=== PATIENT | female | born 1985 | race Caucasian/White ===

== ENCOUNTER 2016-06-23 17:30 | Emergency (ER) | payer OTHER ==
[2016-06-23] MEDS ORDERED: ONDANSETRON HCL/PF 2 MG/ML VIAL IV ONE (17:56)
[2016-06-23] MEDS ORDERED: NORMAL SALINE 1,000 ML IV ONE (17:56)
[2016-06-23] MEDS ORDERED: KETOROLAC TROMETHAMINE 60 MG/2 ML VIAL IM ONE (17:58)
--- NOTE | 2016-06-23 18:03 | ERNOTE ---
Medical Problem HPI - Narrative Date of Service: 06/23/16 - General Chief Complaint: Nausea/Vomiting Time Seen by Provider: 06/23/16 17:53 Source: patient Exam Limitations: no limitations - Immun/Allergies/Home Medications Immunizations: IMMUNIZATION HX Immunizations Up to Date Yes History of Influenza Vaccine Yes Hx Pneumococcal Vaccination No Allergies/Adverse Reactions: Allergies latex Adverse Reaction (Verified 06/23/16 17:43) Home Medications: HOME MEDICATIONS LORazepam [Ativan] 0.5 mg PO Q8H #30 tablet 06/04/15 [Last Taken Unknown] Pnv95/Ferrous Fumarate/FA [ Caplet] 1 each PO DAILY 05/21/16 [Last Taken Unknown] - History of Present History Narrative: Pt. comes in with c/o nausea, vomiting, diarrhea since 0100 this morning. Pt. states that she has been unable to tolerate and foods or fluid since. Pt. denies any SOB, CP, cough, fever, or alleviating factors. Pt. states taht she has taken tums and it made the symptoms worse. Review of Systems - Review of Systems Constitutional: Present: malaise. Absent: recent illness, fever, chills, weakness, fatigue EYE: Present: no symptoms reported ENT: Present: no symptoms reported. Absent: ear pain, ear discharge, nose congestion, nasal drainage, sore throat Respiratory: Present: no symptoms reported. Absent: shortness of breath, cough , wheezing Cardiology: Present: no symptoms reported. Absent: chest pain, palpitations, edema Gastrointestinal/Abdominal: Present: nausea, vomiting, diarrhea. Absent: abdominal pain Genitourinary: Present: no symptoms reported. Absent: frequency, pain, dysuria , hematuria, decreased urinary output, discharge Musculoskeletal: Present: back pain - mild generalized. Absent: joint pain Skin: Present: no symptoms reported. Absent: rash, change in color Neurological: Present: no symptoms reported. Absent: headache, dizziness/light- headedness, numbness, tingling All Other Systems: All systems neg except as marked - Patient's Past Medical History Patient History - Medical: ADHD, Anxiety, Other - ectopic Patient History - Cardiac/Respiratory: No pertinent hx Patient History - Cancer: No Hx of Cancer, Other Patient History - Surgical Procedures: Appendectomy, Other Patient History - Other: None LMP (Calendar): 03/24/15 - Family History Mother Family History - Medical: No pertinent hx Family History - Cardiac/Respiratory: No pertinent hx - Social History Living Situations: home Abuse History: No History of abuse Psych History: Hx of Anxiety Alcohol Use: occasionally Drug Use: none - Immunizations Immunizations Up to Date: Yes Hx Pneumococcal Vaccination: No History of Influenza Vaccine: Yes Physical Exam - Physical Exam General Appearance: Present: wd/wn, alert, no apparent distress Eye Exam: Normal inspection: bilateral, PERRL: bilateral, EOMI: bilateral Ears, Nose, Throat: Present: normal ENT inspection, hearing grossly normal, normal pharynx Neck: Present: normal inspection, nontender. Absent: lymphadenopathy (R), lymphadenopathy (L) Respiratory: Present: no respiratory distress, normal breath sounds, no accessory muscle use, chest nontender, lungs clear Cardiovascular/Chest: Present: regular rate, rhythm, no murmur, normal peripheral pulses Gastrointestinal/Abdominal: Present: normal bowel sounds, nontender, soft, no organomegaly, distended - gravid. Absent: McBurney sign, Obturator sign, Edwards sign Back Exam: Present: normal inspection, normal range of motion, no CVA tenderness , no vertebral tenderness. 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 Absent: pallor, skin rash ED Progress - Date and Time Seen: Date and Time: 06/23/16 19:[address] Hopkins and as pt. has been confirmed IUP in office and is not having abd pain she does not feel taht she needs a NST but we will dopple heart tones for reassurance and administer D5 1/2 for fluid bolus to help with ketonuria. - Results and Orders Patient's Lab Results:: I have reviewed the patient's lab results. - Vital Signs Patient's Vital Signs:: I have reviewed the patient's vital signs. Vital Signs: Vital Signs 06/23/16 17:35 Temperature 35.4 C L Pulse Rate 113 H Respiratory 12 Rate Blood Pressure 119/79 O2 Sat by Pulse 98 Oximetry - Progress/Reassessment Chief Complaint: Nausea/Vomiting Departure - Departure Clinical Impression: Acute gastroenteritis Disposition: Home self-care Condition: Good Instructions: Viral Gastroenteritis, Adult, [id number] Additional Instructions: Please follow up with OBGYN or Primary provider as needed for further treatment. May take Vitamin B6, [place] root, or unisom 12.5 mg for nausea. Referrals: Dago Hatch DO [Primary Care Provider] -
[2016-06-23 18:27] LABS: Hematocrit 40.2 % (37.0-47.0); Mean Cell Volume 94.6 fl (78-100); Mean Corpuscular Hemoglobin 32.9 pg (27-31); Mean Corpuscular Hgb Conc 34.8 g/dl (32-36); Neutrophil # 8.7 K/mm3 (1.3-6.0); Neutrophil % 93.2 % (42-75.0); Platelet Count 188 K/mm3 (150-450); Red Blood Count 4.25 M/mm3 (4.2-5.4); Red Cell Distribution Width 12.3 % (11.5-14.0); White Blood Count 9.3 K/mm3 (4.0-10.5)
[2016-06-23 18:34] LABS: Urine Bilirubin Negative (NEGATIVE); Urine Blood Negative /ul (NEGATIVE); Urine Ketone Large mg/dL (NEGATIVE); Urine Nitrite Negative (NEGATIVE); Urine Protein Negative (NEGATIVE); Urine Specific Gravity >=1.030 SP.GR. (1.005-1.010); Urine Urobilinogen Normal (NORMAL)
[2016-06-23] MEDS ORDERED: ONDANSETRON HCL/PF 2 MG/ML VIAL ONE (18:35)
[2016-06-23 18:44] LABS: Albumin * 3.2 gm/dl (3.4-5.0); Anion Gap 13.8 mmol/L (6.8-13.8); BUN/Creatinine Ratio 23.8 (9.0-21.6); Bilirubin, Total 0.5 mg/dL (0.0-1.1); Ca. Corrected For Albumin 8.8 mg/dL (8.4-10.2); Calcium * 8.5 mg/dL (7.9-10.9); Carbon Dioxide 21.7 mmol/L (24-32.6); Potassium 3.5 mmol/L (3.4-4.6); Total Protein 7.9 gm/dL (6.2-8.2)
[2016-06-23] MEDS ORDERED: ACETAMINOPHEN 500 MG TABLET PO ONE (18:51)
[2016-06-23 19:01] LABS: Urine Appearance Clear; Urine Bacteria 1+; Urine Color Yellow; Urine RBC None Seen /hpf (0-5); Urine WBC None Seen /hpf (0-5)
[2016-06-23 19:11] LABS: Cocaine Ur Negative (NEGATIVE); Urine Barbiturate Negative (NEGATIVE); Urine Benzodiazepines Negative (NEGATIVE); Urine Opiates Negative (NEGATIVE); Urine PCP Negative (NEGATIVE); Urine THC Negative (NEGATIVE)
[2016-06-23] MEDS ORDERED: DEXTROSE 5%-0.5 NORMAL SALINE 1,000 ML IV PRN (19:12)
[2016-06-23 20:10] VITALS: BP 121/80
== END 2016-06-23 23:50 | disposition home or self-care (01) ==
LOC: ER 17:30
DX: K52.9 Noninfective gastroenteritis and colitis, unspecified (principal)
CPT/HCPCS: 36415; 80053; 81001; 85025; 96374; 99283; G0479

== ENCOUNTER 2016-10-22 03:47 | Inpatient (IN) | payer OTHER ==
--- OUTSIDE RECORDS SUMMARY | 2016-10-22 03:51 | XMS REPORT | Continuity of Care Document ---
:1985 Author Organization [facility] ([facility]) Address [address] [place] [address] Phone [phone] Care Team Providers Name Role Phone Mauro Hillman Primary Care Provider [phone] Source Comments This disclosure is being made pursuant to the Care Everywhere program, applicable federal and state laws, and may not contain all informaitonavailable regarding this patient.[facility] ([facility]) Active Allergies and Adverse Reactions No Active Allergies Current Medications Not on file Active Problems Not on file Social History Tobacco Use Types Packs/Day Years Used Date Never Assessed Last Filed Vital Signs Vital Sign Reading Time Taken Blood Pressure - - Pulse - - Temperature - - Respiratory Rate - - Height 1.43 m (4' 8.29") 05/27/1999 9:59 AM 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
[2016-10-22] MEDS ORDERED: RINGERS SOLUTION,LACTATED 1,000 ML IV PRN (04:16)
[2016-10-22] MEDS ORDERED: PENICILLIN G POTASSIUM 5 MILLIONUNT in DEXTROSE 5 % IN WATER 100 ML IV ONE ×2 (04:16)
[2016-10-22] MEDS ORDERED: BETAMETH ACET/BETAMET SOD PHOS 6 MG/ML VIAL IM SCH (04:30)
[2016-10-22 04:40] LABS: Hemoglobin 11.5 gm/dL (12.5-16.0); Mean Cell Volume 93.9 fl (78-100); Mean Corpuscular Hemoglobin 31.8 pg (27-31); Mean Corpuscular Hgb Conc 33.8 g/dl (32-36); Mean Platelet Volume 10.8 fl (6.0-9.5); Neutrophil % 68.5 % (42-75.0); Platelet Count 152 K/mm3 (150-450); Red Blood Count 3.62 M/mm3 (4.2-5.4); Red Cell Distribution Width 13.2 % (11.5-14.0); White Blood Count 7.3 K/mm3 (4.0-10.5)
[2016-10-22] MEDS: DEXTROSE 5%-LACTATED RINGERS 1,000 ML IV PRN ×2 (05:08→10:29)
--- OUTSIDE RECORDS SUMMARY | 2016-10-22 08:07 | XMS REPORT | Continuity of Care Document ---
:1985 Author Organization [facility] ([facility]) Address [place] [address] Phone [phone] Care Team Providers Name Role Phone Mauro Hillman Primary Care Provider [phone] Source Comments This disclosure is being made pursuant to the Care Everywhere program, applicable federal and state laws, and may not contain all informaitonavailable regarding this patient.[facility] ([facility]) Active Allergies and Adverse Reactions No Active Allergies Current Medications Not on file Active Problems Not on file Social History Tobacco Use Types Packs/Day Years Used Date Never Assessed Last Filed Vital Signs Vital Sign Reading Time Taken Blood Pressure - - Pulse - - Temperature - - Respiratory Rate - - Height 1.43 m (4' 8.29") 05/27/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
[2016-10-22] MEDS ORDERED: TERBUTALINE SULFATE 1 MG/ML VIAL SC STA (08:22)
[2016-10-22] MEDS: PENICILLIN G POTASSIUM 2.5 MILLIONUNT in DEXTROSE 5 % IN WATER 100 ML IV SCH ×4 (08:27→19:46)
[2016-10-22] MEDS ORDERED: TERBUTALINE SULFATE 1 MG/ML VIAL SC ONE (09:18)
[2016-10-22] MEDS ORDERED: NALOXONE HCL 1 MG/1 ML SYRG IV PRN (09:39)
[2016-10-22] MEDS ORDERED: BUPIVACAINE HCL/0.9 % NACL/PF 250 ML EP PRN (09:39)
[2016-10-22] MEDS ORDERED: ONDANSETRON HCL/PF 2 MG/ML VIAL IV PRN (09:39)
[2016-10-22] MEDS ORDERED: fentaNYL CITRATE/PF 50 MCG/ML AMPUL IT SCH (09:45)
[2016-10-22] MEDS ORDERED: LIDOCAINE HCL 50 ML VIAL ONE (09:57)
--- NOTE | 2016-10-22 10:12 | OR ---
Anesthesia Procedure Note - Anesthesia Procedure Note Narrative: Vital Signs - Last Taken Temp 37 C 10/22/16 09:41 Pulse 80 10/22/16 09:41 Resp 16 10/22/16 09:41 BP 130/90 10/22/16 09:41 Pulse Ox 98 10/22/16 09:41 10/22/16 10:12 ANESTHESIA PROCEDURE NOTE Date of Procedure: 10/22/2016 Time of procedure: 1000. Performed by: Howie Sainz CRNA Academic Affairs Dean: None. Preprocedure diagnosis: Active labor. Post procedure diagnosis: Same. Procedure: Insertion of labor epidural. Indications: The patient is a 30 -year-old multigravida female in active labor requesting labor epidural for pain management. Findings: See below. Details of the procedure: The patient was placed in a sitting position. Back was prepped with DuraPrep. Patient was then draped in a sterile fashion. Lidocaine 1% was infiltrated to the skin and subcutaneous tissues at the level of the L3 4 interspace. The epidural space was identified using a 18-gauge Tuohy needle with [id number] technique. 20 mcg fentanyl was given intrathecally using a 27 ga. spinal needle. Epidural catheter was inserted without difficulty. Negative test dose was elicited using 5 mL of 1.5% preservative-free lidocaine plus epinephrine 1 200,000. The epidural catheter was then taped and secured in place. EBL: Minimal. Fluids: N/A. Specimen: N/A. Post procedure condition: The patient tolerated the procedure well. No complications were noted. Thank you for this consultation. Arriaga CRNA
[2016-10-22] MEDS ORDERED: BISACODYL 10 MG SUPP.RECT RC PRN (12:25)
[2016-10-22] MEDS ORDERED: SENNOSIDES 8.6 MG TABLET PO PRN (12:25)
[2016-10-22] MEDS ORDERED: GLYCERIN/WITCH HAZEL LEAF 40 APPL BOX TP PRN (12:25)
[2016-10-22] MEDS ORDERED: BENZOCAINE/MENTHOL 81 SPRAY CAN TP PRN (12:25)
[2016-10-22] MEDS ORDERED: OXYTOCIN/DEXTROSE 5%-WATER 30 UNITS/500 ML BAG IV ONE (12:25)
[2016-10-22] MEDS ORDERED: HYDROCORTISONE 30 APPL TUBE TP PRN (12:25)
[2016-10-22] MEDS ORDERED: hydrOXYzine PAMOATE 25 MG CAPSULE PO PRN (12:26)
--- NOTE | 2016-10-22 12:33 | OR ---
Operative Report - Dictated Report Narrative: Indication: Severe prolonged variable deceleration to 60 bpm Pre Procedure Patient was counseled to the risk, benefits, and alternatives to operative vaginal delivery. All questions were answered. Patient consented to proceed with operative vaginal delivery. heart rate interpretation: Category 3, EFW 2300 g, station +2, Position of head ANTWAN, Anesthesia: epidural Cervix was completely dilated and effaced, maternal- size appropriate for application, bladder was emptied Procedure Toribio/Luikart forceps easily applied, hinge/lock approximated without difficulty, one pull, advancement in station with each pull, degree of rotation 0-45 Post Procedure Viable male 's born at 1124 on 10/22/2016 with Apgars 6 and 8, weighing 2468 g in ANTWAN position. Cord clamping delayed 1 minute, cord milked 4-5 times due to partial abruption. Cord gases collected, Placenta spontaneous lead delivered with large 12 cm clot , EBL 300 mL,, no injury, no shoulder dystocia Lacerations: none History for Definition: * The number of deliveries resulting in a live the patient experienced prior to current hospitalization * The previous delivery of live twins or any live multiple gestation is considered one live event. *If primagravida or nulliparous is documented select zero for the number of previous live births. Live Events: 1
[2016-10-22] MEDS: IBUPROFEN 800 MG TABLET PO PRN ×2 (12:37→20:39)
[2016-10-22] MEDS: oxyCODONE HCL/ACETAMINOPHEN 1 TAB TABLET PO PRN ×3 (12:37→20:39)
[2016-10-22] MEDS: DOCUSATE SODIUM 100 MG CAPSULE PO SCH (20:39)
[2016-10-23] MEDS: oxyCODONE HCL/ACETAMINOPHEN 1 TAB TABLET PO PRN ×3 (00:22→12:18)
[2016-10-23] MEDS: IBUPROFEN 800 MG TABLET PO PRN ×2 (05:11→12:18)
[2016-10-23] MEDS: DOCUSATE SODIUM 100 MG CAPSULE PO SCH ×2 (07:56→08:12)
[2016-10-23 08:38] VITALS: BP 127/81
[2016-10-23] MEDS ORDERED: FATTY ACIDS PO SCH (09:00)
[2016-10-23] MEDS ORDERED: OMEGA PO SCH (09:00)
[2016-10-23] MEDS ORDERED: SALMON OIL PO SCH (09:00)
[2016-10-23] MEDS ORDERED: PRENATAL VIT#96/FERROUS FUM/FA 1 TAB TABLET PO SCH (09:00)
--- NOTE | 2016-10-23 12:53 | PN ---
Subjective - Date and Time Seen Date: 10/23/16 Time: 12:52 Objective - Vitals Vitals: Last Vital Signs Temp 36.6 C 10/23/16 07:51 Pulse 75 10/23/16 07:51 Resp 18 10/23/16 07:51 BP 127/81 10/23/16 07:51 Pulse Ox 97 10/23/16 07:51 Patient denies complaints. Lochia wnl Abdomen - soft, nontender Uterus - firm, at umbilicus - 1 No calf tenderness Impression: day #1 - s/p low forceps delivery of infant. Infant transferred to [facility] Plan: Continue routine care. Discharge instructions given. Early discharge so mother can be with infant at [facility]
== END 2016-10-23 13:15 | disposition home or self-care (01) | DRG 774 ==
LOC: OBCLINIC 03:47 → OB 08:03
PROVIDERS: ADMIT Obstetrics & Gynecology; ATTEND Obstetrics & Gynecology
PROC: 10D07Z3 Extraction of Products of Conception, Low Forceps, Via Natural or Artificial Opening (ICD-10-PCS; principal; 2016-10-22)
PROC: 4A1H7CZ Monitoring of Products of Conception, Cardiac Rate, Via Natural or Artificial Opening (ICD-10-PCS; 2016-10-22)
PROC: 10H073Z Insertion of Monitoring Electrode into Products of Conception, Via Natural or Artificial Opening (ICD-10-PCS; 2016-10-22)
PROC: 3E0S3CZ (ICD-10-PCS; 2016-10-22)
DX: O60.14X0 Preterm labor third trimester with preterm delivery third trimester, not applicable or unspecified (principal); O45.93 Premature separation of placenta, unspecified, third trimester; O76 Abnormality in fetal heart rate and rhythm complicating labor and delivery; J45.909 Unspecified asthma, uncomplicated; Z3A.36 36 weeks gestation of pregnancy; Z37.0 Single live birth

== ENCOUNTER 2019-11-22 06:21 | Inpatient (IN) ==
[2019-11-22] MEDS ORDERED: LIDOCAINE HCL 50 ML VIAL PERI PRN (06:54)
[2019-11-22] MEDS ORDERED: ONDANSETRON 4 MG TAB.RAPDIS PO PRN (06:54)
[2019-11-22] MEDS ORDERED: DEXTROSE 5%-LACTATED RINGERS 1,000 ML IV PRN (06:54)
[2019-11-22] MEDS ORDERED: PENICILLIN G POTASSIUM 5 MILLIONUNT in DEXTROSE 5 % IN WATER 100 ML IV ONE ×2 (06:54)
[2019-11-22] MEDS ORDERED: OXYTOCIN/DEXTROSE 5%-WATER 30 UNITS/500 ML BAG IV ONE ×3 (06:54→15:23)
[2019-11-22] MEDS ORDERED: RINGER'S SOLUTION,LACTATED 1,000 ML IV PRN (06:54)
[2019-11-22] MEDS ORDERED: BUPIVACAINE HCL/0.9 % NACL/PF 250 ML EP PRN (07:21)
[2019-11-22] MEDS ORDERED: NALOXONE HCL 1 MG/1 ML SYRG IV PRN (07:21)
[2019-11-22] MEDS ORDERED: ONDANSETRON HCL/PF 2 MG/ML VIAL IV PRN (07:21)
[2019-11-22] MEDS ORDERED: BUPIVACAINE HCL/PF 30 ML VIAL EP SCH (07:30)
--- NOTE | 2019-11-22 07:35 | ANES ---
Anesthesia Pre Procedure Eval Vitals/Labs: Last Vital Signs Temp 36.3 C 11/22/19 06:23 Pulse 94 11/22/19 06:23 Resp 16 11/22/19 06:23 BP 112/78 11/22/19 06:23 Pulse Ox 98 11/22/19 06:23 HOME MEDICATIONS acetaminophen 325 mg capsule 325 mg PO Q4H PRN 05/07/19 [Last Taken Unknown] calcium carbonate 200 mg calcium (500 mg) chewable tablet 200 mg PO BID PRN 05/07/19 [Last Taken Unknown] Ferrous Sulfate [Iron] 325 mg PO DAILY 11/01/19 [Last Taken Unknown] Vits96/Iron Fum/Folic [ S] 1 tab PO DAILY 11/01/19 [Last Taken Unknown] Allergies/Adverse Reactions: Allergies Allergy/AdvReac Type Severity Reaction Status Date / Time latex AdvReac RASH Verified 11/22/19 06:24 - Planned Procedure Planned Procedure: labor epidural Medication List Reviewed:: Yes Allergies Verified: Yes Medical History (Last Reviewed 11/22/19 @ 07:35 by John Duong CRNA) Anemia (Acute) Onset Date: 09/18/19 w/ Generalized anxiety disorder (Chronic) Attention deficit disorder of adult with hyperactivity (Chronic) Asthma Onset Date: ~2003 Hospitalized with asthma ~ 2004 Hemorrhagic condition Onset Date: 06/03/15 Intra-abdominal hemorrhage - ectopic Anxiety Onset Date: 03/08/13 Attention deficit disorder Onset Date: 05/08/13 Attention deficit hyperactivity disorder (ADHD), combined type Onset Date: 02/20/15 Bipolar disorder Onset Date: 01/31/14 Bipolar disorder, current episode mixed, moderate Onset Date: 10/08/15 Borderline personality disorder Onset Date: 06/27/15 Depression Onset Date: 09/28/13 Generalized anxiety disorder Onset Date: 02/15/17 Insomnia due to mental disorder Onset Date: 02/20/15 Insomnia, unspecified Onset Date: 04/10/14 Major depressive disorder, recurrent episode Onset Date: 06/27/15 Migraine Onset Date: Unknown Has spots in vision at times Mood swings Onset Date: 03/08/13 Stress reaction, acute Onset Date: 03/12/14 Abnormal Pap smear of cervix Onset Date: ~2004 Acute bacterial bronchitis (Resolved) Acute gastroenteritis (Resolved) Anemia associated with acute blood loss (Resolved) Anxiety as acute reaction to exceptional stress (Resolved) Chest pain Onset Date: Unknown Thinks secondary to panic attacks Constipation by delayed colonic transit (Resolved) Dog bite Onset Date: 10/20/14 Right hand Dog bite of right hand (Resolved) Ectopic Onset Date: Unknown 02/2012 - with methotrexate and 06/03/15 - ruptured right tubal heterotopic Ectopic without intrauterine (Resolved) Embryonic demise Onset Date: Unknown Gastroenteritis and colitis, viral (Resolved) Hemoperitoneum Onset Date: Unknown Lacerations of multiple sites of right arm (Resolved) Migraine (Resolved) Pain, abdominal, RUQ (Resolved) Placental abruption Onset Date: 10/22/16 Partial abruption with forcep delivery Pneumonia (Resolved) delivery Onset Date: 10/22/16 at 35 weeks Pyelonephritis (Resolved) Rupture of ovarian cyst Onset Date: Unknown Right Ruptured ectopic (Resolved) UTI (urinary tract infection) (Resolved) UTI (urinary tract infection) Onset Date: Unknown Vaginal delivery (Resolved) Yeast vaginitis Onset Date: Unknown Surgical History (Last Reviewed 11/22/19 @ 07:35 by John Duong CRNA) History of appendectomy Onset Date: ~2010 History of colposcopy Onset Date: ~2007 History of salpingectomy Onset Date: 06/04/15 Right - Dr Hatch Family History (Last Reviewed 11/22/19 @ 07:35 by John Duong CRNA) Mother Obsessive compulsive disorder Depression Anxiety Father Family history unknown - Anesthesia Assessment and Plan ASA Class: PS, II Anesthesia Type Plan: Epidural
--- NOTE | 2019-11-22 07:53 | ANES ---
Anesthesia Procedure Note Procedure Note: ANESTHESIA PROCEDURE NOTE Date of Procedure: ANESTHESIA PROCEDURE NOTE Date of Procedure: 11/22/2019. Time of procedure: 734. Performed by: John Duong CRNA Requirements Manager: None. Preprocedure diagnosis: Active labor. Post procedure diagnosis: Same. Procedure: Insertion of labor epidural. Indications: The patient is a 33-year-old female in active labor requesting labor epidural for pain management. Findings: See below. Details of the procedure: The patient was placed in a sitting position. DuraPrep as well as Betadine swabs X3 was applied to the patient's back. Patient was then draped in a sterile fashion. Lidocaine 1% was infiltrated to the skin and subcutaneous tissues at the level of the L3-4 interspace. The epidural space was identified using a 18-gauge Tuohy needle with [id number]-[id number] technique. Epidural catheter was inserted to a depth of 9 centimeters at skin. Negative test dose was elicited using 3 mL of 1.5% preservative-free lidocaine plus epinephrine 1 200,000. The epidural catheter was then taped and secured in place. A loading dose of 8 mL of 0.25% pre servative-free bupivacaine was administered to the epidural catheter after negative aspiration for blood and CSF. EBL: Minimal. Fluids: N/A. Specimen: N/A. Post procedure condition: The patient tolerated the procedure well. No complications were noted. Thank you for this consultation. John Duong CRNA
--- NOTE | 2019-11-22 07:53 | ANES ---
Post Anesthesia Assessment - Vital Signs Vitals: Last Vital Signs Temp 36.3 C 11/22/19 06:23 Pulse 94 11/22/19 06:23 Resp 16 11/22/19 06:23 BP 112/78 11/22/19 06:23 Pulse Ox 98 11/22/19 06:23 Airway Patency: Normal - Mental Status Level Of Consciousness: Awake - N/V Assessment Nausea/Vomiting Presence: None Dehydration:: No
[2019-11-22 07:57] LABS: Cocaine Ur Negative (NEGATIVE); Urine Barbiturate Negative (NEGATIVE); Urine Benzodiazepines Negative (NEGATIVE); Urine Opiates Negative (NEGATIVE); Urine PCP Negative (NEGATIVE); Urine THC Negative (NEGATIVE)
--- NOTE | 2019-11-22 09:22 | HP ---
Chief Complaint - Chief Complaint Date of Service: 11/22/19 Time of Service: 09:19 Chief Complaint: painful contractions and vaginal pressure History of Present Illness: 33 yo at 37 6/7 weeks admitted for management of labor. This complicated by anemia, ashtma, anxiety, depression, bipolar d/o, PTL, h/o PTD (35wks), and 1st trimester THC use. Rh positive Rubella immune GBS positive Medical History (Last Reviewed 11/22/19 @ 09:21 by Dago Hatch DO) Anemia (Acute) Onset Date: 09/18/19 w/ Generalized anxiety disorder (Chronic) Attention deficit disorder of adult with hyperactivity (Chronic) Asthma Onset Date: ~2003 Hospitalized with asthma ~ 2004 Hemorrhagic condition Onset Date: 06/03/15 Intra-abdominal hemorrhage - ectopic Anxiety Onset Date: 03/08/13 Attention deficit disorder Onset Date: 05/08/13 Attention deficit hyperactivity disorder (ADHD), combined type Onset Date: 02/20/15 Bipolar disorder Onset Date: 01/31/14 Bipolar disorder, current episode mixed, moderate Onset Date: 10/08/15 Borderline personality disorder Onset Date: 06/27/15 Depression Onset Date: 09/28/13 Generalized anxiety disorder Onset Date: 02/15/17 Insomnia due to mental disorder Onset Date: 02/20/15 Insomnia, unspecified Onset Date: 04/10/14 Major depressive disorder, recurrent episode Onset Date: 06/27/15 Migraine Onset Date: Unknown Has spots in vision at times Mood swings Onset Date: 03/08/13 Stress reaction, acute Onset Date: 03/12/14 Abnormal Pap smear of cervix Onset Date: ~2004 Acute bacterial bronchitis (Resolved) Acute gastroenteritis (Resolved) Anemia associated with acute blood loss (Resolved) Anxiety as acute reaction to exceptional stress (Resolved) Chest pain Onset Date: Unknown Thinks secondary to panic attacks Constipation by delayed colonic transit (Resolved) Dog bite Onset Date: 10/20/14 Right hand Dog bite of right hand (Resolved) Ectopic Onset Date: Unknown 02/2012 - with methotrexate and 06/03/15 - ruptured right tubal heterotopic Ectopic without intrauterine (Resolved) Embryonic demise Onset Date: Unknown Gastroenteritis and colitis, viral (Resolved) Hemoperitoneum Onset Date: Unknown Lacerations of multiple sites of right arm (Resolved) Migraine (Resolved) Pain, abdominal, RUQ (Resolved) Placental abruption Onset Date: 10/22/16 Partial abruption with forcep delivery Pneumonia (Resolved) delivery Onset Date: 10/22/16 at 35 weeks Pyelonephritis (Resolved) Rupture of ovarian cyst Onset Date: Unknown Right Ruptured ectopic (Resolved) UTI (urinary tract infection) (Resolved) UTI (urinary tract infection) Onset Date: Unknown Vaginal delivery (Resolved) Yeast vaginitis Onset Date: Unknown Surgical History: Surgical History (Last Reviewed 11/22/19 @ 12:51 by Dago Hatch DO) History of appendectomy Onset Date: ~2010 History of colposcopy Onset Date: ~2007 History of salpingectomy Onset Date: 06/04/15 Right - Dr Hatch Family History: Family History (Last Reviewed 11/22/19 @ 12:51 by Dago Hatch DO) Mother Obsessive compulsive disorder Depression Anxiety Father Family history unknown Social History: (Last Reviewed 11/22/19 @ 12:51 by Dago Hatch DO) Social History: Marital status: Single household members: children, significant other number of children: 2 current occupational status: employed, unemployed Highest education level completed: some college, no degree Service: No Tobacco: Smoking Status: Never smoker Alcohol: alcohol intake: never alcohol intake frequency: other details: None since UPT + Substance Use: substance use type: does not use Dietary Habits: caffeine: Yes caffeine comment: 1/week Exercise: Physical activity type: other cardio, yoga frequency: 3-4 times per week Review Of Systems (GEN) - Review of Systems Generalized/Overall Review: Present: No Symptoms Reported EENTM: Present: No Symptoms Reported Respiratory: Present: No Symptoms Reported Cardiac: Present: No Symptoms Reported Abdominal: Present: Other - contractions Genitourinary: Present: Other - vaginal pressure Neurological: Present: No Symptoms Reported Skin: Present: No Symptoms Reported Endocrine: Present: No Symptoms Reported Immunizations: IMMUNIZATION HX Immunizations Up to Date Yes History of Influenza Vaccine Yes Hx Pneumococcal Vaccination No Allergies/Adverse Reactions: Allergies Allergy/AdvReac Type Severity Reaction Status Date / Time latex AdvReac RASH Verified 11/22/19 06:24 Home Medications: HOME MEDICATIONS acetaminophen 325 mg capsule 325 mg PO Q4H PRN 05/07/19 [Last Taken Unknown] calcium carbonate 200 mg calcium (500 mg) chewable tablet 200 mg PO BID PRN 05/07/19 [Last Taken Unknown] Ferrous Sulfate [Iron] 325 mg PO DAILY 11/01/19 [Last Taken Unknown] Vits96/Iron Fum/Folic [ S] 1 tab PO DAILY 11/01/19 [Last Taken Unknown] Exam - Exam Vital Signs: Vital Signs - Last Taken Temp 36.3 C 11/22/19 06:23 Pulse 94 11/22/19 06:23 Resp 16 11/22/19 06:23 BP 112/78 11/22/19 06:23 Pulse Ox 98 11/22/19 06:23 Constitutional: Present: Alert, Oriented x3, Cooperative, Moderate distress ENT Exam: Present: hearing grossly normal Neck: Absent: thyromegaly Breasts: Present: Exam deferred Respiratory: Present: lungs clear, no respiratory distress Cardiovascular/Chest: Present: normal peripheral pulses, regular rate, rhythm, no edema Abdomen: Present: soft, nontender, no rebound tenderness, other - gravid /Rectal: Present: Other - Cervix 6/80/0 Extremity: Present: no pedal edema, no calf tenderness Skin Exam: Present: normal color, warm/dry, no cyanosis Lymphatic: Present: no adenopathy Neurologic: Present: alert, normal mood/affect, oriented x 3 Appearance: Present: appropriate appearance, appropriate insight Eye contact: Present: cooperative, good eye contact Thoughts: Present: normal thought pattern Diagnostic Studies: Laboratory Results Urine Opiates Screen Negative (NEGATIVE) 11/22/19 07:38 Barbiturate Screen Negative (NEGATIVE) 11/22/19 07:38 Ur Phencyclidine Scrn Negative (NEGATIVE) 11/22/19 07:38 Urine Amphetamine Negative (NEGATIVE) 11/22/19 07:38 U Benzodiazepines Scrn Negative (NEGATIVE) 11/22/19 07:38 Urine Cocaine Screen Negative (NEGATIVE) 11/22/19 07:38 Urine Marijuana (THC) Negative (NEGATIVE) 11/22/19 07:38 Assessment/Plan - Assessment/Plan (1) Labor established Assessment: Admit for routine labor. Epidural PRN. IV PCN per GBS protocol. Problem: Acute (2) GBS carrier Problem: Acute (3) Anemia Problem: Acute Qualifiers: Anemia type: iron deficiency Iron deficiency anemia type: inadequate dietary iron intake Qualified Code(s): D50.8 - Other iron deficiency anemias (4) Generalized anxiety disorder Problem: Chronic (5) Attention deficit disorder of adult with hyperactivity Problem: Chronic
[2019-11-22] MEDS: PENICILLIN G POTASSIUM 2.5 MILLIONUNT in DEXTROSE 5 % IN WATER 100 ML IV SCH ×4 (10:12→17:46)
--- NOTE | 2019-11-22 12:48 | PN ---
Progess Note - Interim Date: 11/22/19 Time: 12:45 Narrative: 11/22/19 12:45 Patient comfortable with epidural Vital signs stable. Pitocin at 2 mu/min. FHT: 135 baseline, reassuring contractions q 2-3 min Cervix: Rim/0 Impression: Intrauterine at 37-6/7 weeks in labor. GBS carrier-status post 2 doses of penicillin Plan: Anticipate normal spontaneous vaginal delivery within the hour
[2019-11-22] MEDS ORDERED: SENNOSIDES 8.6 MG TABLET PO PRN (15:23)
[2019-11-22] MEDS ORDERED: BISACODYL 10 MG SUPP.RECT RC PRN (15:23)
[2019-11-22] MEDS ORDERED: HYDROCORTISONE 30 APPL TUBE TP PRN (15:23)
[2019-11-22] MEDS ORDERED: IBUPROFEN 800 MG TABLET PO PRN (15:23)
[2019-11-22] MEDS ORDERED: GLYCERIN/WITCH HAZEL LEAF 40 APPL BOX TP PRN (15:23)
[2019-11-22] MEDS ORDERED: BENZOCAINE/MENTHOL 81 SPRAY CAN TP PRN (15:23)
[2019-11-22] MEDS ORDERED: oxyCODONE HCL/ACETAMINOPHEN 1 TAB TABLET PO PRN (15:23)
[2019-11-22] MEDS ORDERED: CALCIUM CARBONATE 500 MG TAB.CHEW PO PRN (15:24)
--- NOTE | 2019-11-22 15:26 | OR ---
Operative Report - Dictated Report Narrative: Spontaneous vaginal delivery of vigorously crying viable female at 1511 on 12-09 with Apgars 9 and 9, weighing 3115 g in ANTWAN position. Cord clamping delayed approximately 1 minute Placenta delivered complete, intact, with three vessel cord Estimated blood loss: Less than 50 ml Anesthesia: Epidural Lacerations: None History for MU History for MU Definition: * The number of deliveries resulting in a live the patient experienced prior to current hospitalization * The previous delivery of live twins or any live multiple gestation is considered one live event. *If primagravida or nulliparous is documented select zero for the number of previous live births. Live Events: Live Events: 2
[2019-11-22] MEDS: IBUPROFEN 800 MG TABLET PO PRN (15:45)
[2019-11-22] MEDS: DOCUSATE SODIUM 100 MG CAPSULE PO SCH (21:03)
[2019-11-23] MEDS: DOCUSATE SODIUM 100 MG CAPSULE PO SCH ×2 (09:43→21:24)
[2019-11-23] MEDS: FERROUS SULFATE 325 MG TABLET PO SCH (09:43)
[2019-11-23] MEDS: PRENATAL VITS96/IRON FUM/FOLIC 1 TAB TABLET PO SCH (09:43)
--- NOTE | 2019-11-23 09:49 | PN ---
Subjective - Date and Time Seen Date: 11/23/19 Time: 09:48 Objective - Vitals Vitals: Last Vital Signs Temp 36.3 C 11/23/19 07:00 Pulse 74 11/23/19 07:00 Resp 16 11/23/19 07:00 BP 116/79 11/23/19 07:00 Pulse Ox 97 11/23/19 07:00 Patient denies complaints. Breast-feeding Lochia wnl abdomen - soft, nontender Uterus -firm, at umbilicus - 1 no calf tenderness Impression: day #1 - s/p spontaneous vaginal delivery. Plan: Continue routine care Cauti Physician Documentation - Urinary Catheter Management Urethral ([place]) Date of Insertion: 11/22/19 Time of Insertion: 08:28 Date of Removal: 11/22/19 Time of Removal: 14:22 Assessment/Plan - Problems/Diagnosis (1) Labor established Problem: Acute (2) GBS carrier Problem: Acute (3) Anemia Problem: Acute Qualifiers: Anemia type: iron deficiency Iron deficiency anemia type: inadequate dietary iron intake Qualified Code(s): D50.8 - Other iron deficiency anemias (4) Generalized anxiety disorder Problem: Chronic (5) Attention deficit disorder of adult with hyperactivity Problem: Chronic
[2019-11-23] MEDS: IBUPROFEN 800 MG TABLET PO PRN (21:24)
[2019-11-24 08:22] VITALS: BP 133/81
[2019-11-24] MEDS: DOCUSATE SODIUM 100 MG CAPSULE PO SCH (08:28)
[2019-11-24] MEDS: FERROUS SULFATE 325 MG TABLET PO SCH (08:29)
[2019-11-24] MEDS: PRENATAL VITS96/IRON FUM/FOLIC 1 TAB TABLET PO SCH (08:29)
--- NOTE | 2019-11-24 10:03 | PN ---
Subjective - Date and Time Seen Date: 11/24/19 Time: 10:03 Objective - Vitals Vitals: Last Vital Signs Temp 36.2 C 11/24/19 07:40 Pulse 76 11/24/19 07:40 Resp 18 11/24/19 07:40 BP 133/81 11/24/19 07:40 Pulse Ox 99 11/24/19 07:40 Patient denies complaints. Breast-feeding Lochia wnl abdomen - soft, nontender Uterus -firm, at umbilicus - 2 no calf tenderness Impression: day #2 - s/p spontaneous vaginal delivery. Plan: Routine discharge instructions Cauti Physician Documentation - Urinary Catheter Management Urethral ([place]) Date of Insertion: 11/22/19 Time of Insertion: 08:28 Date of Removal: 11/22/19 Time of Removal: 14:22 Assessment/Plan - Problems/Diagnosis (1) Labor established Problem: Acute (2) GBS carrier Problem: Acute (3) Anemia Problem: Acute Qualifiers: Anemia type: iron deficiency Iron deficiency anemia type: inadequate dietary iron intake Qualified Code(s): D50.8 - Other iron deficiency anemias (4) Generalized anxiety disorder Problem: Chronic (5) Attention deficit disorder of adult with hyperactivity Problem: Chronic
== END 2019-11-24 10:58 | disposition home or self-care (01) | DRG 807 ==
LOC: OBCLINIC 06:21 → OB 07:01
PROVIDERS: ADMIT Obstetrics & Gynecology; ATTEND Obstetrics & Gynecology
CPT/HCPCS: 59025; 80307